=== PATIENT | male | born 1965 | race Caucasian/White ===

== ENCOUNTER 2017-02-15 17:33 | Emergency (ER) | payer BC ==
[~2017-02-15] VITALS: Ht 177.8 cm; Wt 100.0 kg
[2017-02-15] MEDS ORDERED: LORTAB 10-325 M1 TAB PO (18:36)
[2017-02-15 19:18] VITALS: BP 157/89
== END 2017-02-15 19:18 | disposition home or self-care (01) | DRG 563 ==
LOC: ED 17:33
PROC: 2W3DX1Z Immobilization of Left Lower Arm using Splint (ICD-10-PCS; principal; 2017-02-15)
DX: S52.502A Unspecified fracture of the lower end of left radius, initial encounter for closed fracture (principal); F17.210 Nicotine dependence, cigarettes, uncomplicated; W01.0XXA Fall on same level from slipping, tripping and stumbling without subsequent striking against object, initial encounter; Y92.009 Unspecified place in unspecified non-institutional (private) residence as the place of occurrence of the external cause